=== PATIENT | female | born 1955 | race African-American/Black ===

== ENCOUNTER 2016-05-23 09:17 | Emergency (ER) | payer MEDICAID ==
[~2016-05-23] VITALS: Ht 152.4 cm; Wt 90.9 kg
[2016-05-23 09:19] VITALS: BP 153/82
== END 2016-05-23 11:11 | disposition home or self-care (01) ==
LOC: ED 10:38
DX: J44.1 Chronic obstructive pulmonary disease with (acute) exacerbation (principal); B34.9 Viral infection, unspecified; Z87.891 Personal history of nicotine dependence
CPT/HCPCS: 99283